=== PATIENT | male | born 1990 | race Caucasian/White ===

== ENCOUNTER 2021-12-02 17:30 | Inpatient (IN) | payer SELFPAY ==
[~2021-12-02] VITALS: Ht 317.5 cm; Wt 67.6 kg
[2021-12-02] MEDS ORDERED: KETOROLAC 30MG/ML VIAL IV STA (19:18)
[2021-12-02] MEDS ORDERED: BACITRACIN ZINC OINT UDPKT TOP ONE (19:30)
[2021-12-02] MEDS ORDERED: SODIUM CHLORIDE 0.9% 1,000 ML IV ONE (19:30)
[2021-12-02] MEDS ORDERED: TETANUS, DIPHTHERIA, PERTUSSIS VAC/PF 0.5ML (>10YR OLD) IM ONE ×2 (19:30→23:45)
[2021-12-02] MEDS ORDERED: LIDOCAINE HCL/EPINEPHRINE 1%-EPI 1:100,000 20 ML VIAL INFIL ONE (19:30)
[2021-12-02 19:43] LABS: BASOPHILS % 0.2 % (0.0-2.0); EOSINOPHILS % 0.6 % (0.0-5.0); HEMATOCRIT. 42.2 % (42.0-52.0); HEMOGLOBIN. 14.2 g/dL (14.0-18.0); LYMPHOCYTES % 10.5 % (20.0-50.0); MEAN CORPUSCULAR HEMOGLOBIN 30.1 pg (28.0-32.0); MEAN CORPUSCULAR VOLUME 89.8 fL (80.0-94.0); MEAN PLATELET VOLUME 6.6 fl (7.4-10.4); MONOCYTES % 4.3 % (2.0-8.0); NEUTROPHILS % 84.4 % (40.0-76.0); PLATELET 437 x1000/uL (130-400); RED CELL DISTRIBUTION WIDTH 13.5 % (11.6-14.6)
[2021-12-02 19:46] LABS: CHLORIDE 104 mEq/L (98-107)
[2021-12-02 20:00] LABS: INR 0.9; PARTIAL THROMBOPLASTIN TIME 25.5 sec (23.4-31.0)
[2021-12-02] MEDS ORDERED: IOHEXOL-350 100 ML BOTTLE ONE (20:34)
[2021-12-02] MEDS ORDERED: MORPHINE SULFATE 4 MG/ML CPJ (NOT FOR IM USE) IV ONE (21:00)
[2021-12-03] MEDS: HYDROCODONE/ACETAMINOPHEN 5/325MG TABLET PO PRN (06:41)
[2021-12-03 09:35] VITALS: BP 137/91
[2021-12-03] MEDS ORDERED: MIDAZOLAM HCL 2 MG/2 ML VIAL ONE (10:12)
[2021-12-03] MEDS ORDERED: FENTANYL CITRATE/PF 50MCG/ML 2ML VIAL ONE (10:12)
[2021-12-03] MEDS ORDERED: PROPOFOL 200MG/20ML VIAL IV ONE ×2 (10:12→11:02)
[2021-12-03] MEDS ORDERED: ONDANSETRON HCL 4MG/2ML INJ ONE (10:12)
[2021-12-03] MEDS ORDERED: DEXAMETHASONE 4MG/ML 1ML VIAL ONE (10:12)
[2021-12-03] MEDS ORDERED: POLYMYXIN B SULFATE 500000 UNITS/VIAL ONE (10:36)
[2021-12-03] MEDS ORDERED: VANCOMYCIN HCL 1 GM/VIAL ONE ×2 (10:37→10:52)
[2021-12-03] MEDS ORDERED: LIDOCAINE HCL 1% 50ML VIAL (10MG/ML) ONE (10:37)
[2021-12-03] MEDS ORDERED: BUPIVACAINE HCL/PF 0.5% (5MG/ML) 10ML ONE (10:53)
[2021-12-03] MEDS ORDERED: HYDROMORPHONE HCL/PF 2MG/ML CPJ ONE (10:58)
[2021-12-03] MEDS ORDERED: CEFAZOLIN SODIUM 1000MG/VIAL ONE (11:00)
[2021-12-03] MEDS ORDERED: MEPERIDINE HCL/PF 25MG/ML CPJ IV PRN (11:15)
[2021-12-03] MEDS ORDERED: HYDROMORPHONE HCL/PF 2MG/ML CPJ IV PRN (11:15)
[2021-12-03] MEDS ORDERED: LABETALOL 5MG/ML SYR 20 MG/4 ML SYRINGE IV PRN (11:15)
[2021-12-03] MEDS ORDERED: ONDANSETRON HCL 4MG/2ML INJ IV PRN ×2 (11:15→11:30)
[2021-12-03] MEDS ORDERED: ACETAMINOPHEN 325MG TABLET PO PRN (11:30)
[2021-12-03] MEDS ORDERED: NALOXONE HCL 0.4MG/ML VIAL IV PRN (12:00)
[2021-12-03] MEDS ORDERED: LORAZEPAM 1MG TABLET PO PRN (12:45)
[2021-12-03] MEDS ORDERED: HYDROCODONE/ACETAMINOPHEN 5/325MG TABLET PO PRN (12:45)
[2021-12-03] MEDS: CEFAZOLIN 2,000 MG in DEXT 5% WATER 100 ML IV SCH ×2 (17:05→22:00)
[2021-12-03 20:00] VITALS: BP 122/87
[2021-12-04] VITALS: BP 118/73
[2021-12-04 04:00] VITALS: BP 126/90
[2021-12-04] MEDS: CEFAZOLIN 2,000 MG in DEXT 5% WATER 100 ML IV SCH ×3 (05:02→20:40)
[2021-12-04] MEDS: HYDROCODONE/ACETAMINOPHEN 5/325MG TABLET PO PRN (07:47)
[2021-12-04 08:00] VITALS: BP 111/81
[2021-12-04 12:00] VITALS: BP 148/80
[2021-12-04] MEDS: HYDROCODONE/ACETAMINOPHEN 10/325MG TABLET PO PRN ×2 (13:33→20:28)
[2021-12-04 16:00] VITALS: BP 106/72
[2021-12-04 20:00] VITALS: BP 129/82
[2021-12-04 21:17] LABS: BASOPHILS % 0.5 % (0.0-2.0); EOSINOPHILS % 1.2 % (0.0-5.0); HEMATOCRIT. 34.6 % (42.0-52.0); HEMOGLOBIN. 11.7 g/dL (14.0-18.0); LYMPHOCYTES % 23.8 % (20.0-50.0); MEAN CORPUSCULAR HEMOGLOBIN 30.6 pg (28.0-32.0); MEAN CORPUSCULAR VOLUME 90.5 fL (80.0-94.0); MEAN PLATELET VOLUME 6.7 fl (7.4-10.4); MONOCYTES % 9.7 % (2.0-8.0); NEUTROPHILS % 64.8 % (40.0-76.0); PLATELET 391 x1000/uL (130-400); RED BLOOD CELL COUNT 3.82 mill/uL (4.7-6.1); RED CELL DISTRIBUTION WIDTH 13.7 % (11.6-14.6)
[2021-12-04 21:20] LABS: CHLORIDE 101 mEq/L (98-107)
[2021-12-05] VITALS: BP 113/78
[2021-12-05 04:00] VITALS: BP 124/89
[2021-12-05] MEDS: CEFAZOLIN 2,000 MG in DEXT 5% WATER 100 ML IV SCH ×2 (05:16→18:16)
[2021-12-05] MEDS: HYDROCODONE/ACETAMINOPHEN 10/325MG TABLET PO PRN ×3 (05:37→16:14)
[2021-12-05 08:00] VITALS: BP 111/75
[2021-12-05 12:00] VITALS: BP 118/77
[2021-12-05 16:00] VITALS: BP 109/72
[2021-12-05 20:00] VITALS: BP 120/69
[2021-12-06] VITALS: BP 126/84
[2021-12-06] MEDS: CEFAZOLIN 2,000 MG in DEXT 5% WATER 100 ML IV SCH ×2 (02:00→09:22)
[2021-12-06 04:00] VITALS: BP 126/84
[2021-12-06] MEDS ORDERED: MORPHINE SULFATE 2 MG/ML CPJ (NOT FOR IM USE) IV PRN (07:45)
[2021-12-06 08:00] VITALS: BP 128/88
[2021-12-06 12:00] VITALS: BP 125/87
[2021-12-06] MEDS ORDERED: BUPIVACAINE HCL 0.5% (5MG/ML) 50ML ONE (13:35)
[2021-12-06] MEDS ORDERED: FENTANYL CITRATE/PF 50MCG/ML 2ML VIAL ONE ×2 (13:40→13:57)
[2021-12-06] MEDS ORDERED: PROPOFOL 200MG/20ML VIAL IV ONE (13:40)
[2021-12-06] MEDS ORDERED: MIDAZOLAM HCL 2 MG/2 ML VIAL ONE (13:41)
[2021-12-06] MEDS ORDERED: ESMOLOL HCL 10MG/ML 10ML VIAL IV ONE (14:05)
[2021-12-06] MEDS ORDERED: PHENYLEPHRINE HCL 10 MG/ML 1ML (IV VIAL) IV ONE (14:19)
[2021-12-06] MEDS ORDERED: BACITRACIN 15GM TUBE TOP ONE (14:26)
[2021-12-06] MEDS ORDERED: ONDANSETRON HCL 4MG/2ML INJ ONE (14:36)
[2021-12-06 16:15] VITALS: BP 137/86
[2021-12-07] MEDS ORDERED: CEFAZOLIN 2,000 MG in DEXT 5% WATER 100 ML IV SCH (02:00)
[2021-12-16 07:08] LABS: BARBITURATE SCREEN Negative ug/mL (Cutoff:0.1); BENZODIAZEPINE SCREEN Negative ng/mL (Cutoff:20); OPIATES SCREEN Negative ng/mL (Cutoff:5); PHENCYCLIDINE SCREEN Negative ng/mL (Cutoff:8)
== END 2021-12-06 16:47 | disposition left against medical advice (07) | DRG 317 ==
LOC: ER 17:30 → 6EST 12-03 01:39 → ENRESERV 12-03 07:57
PROVIDERS: ADMIT Internal Medicine; ATTEND Internal Medicine
PROC: 0KN80ZZ Release Left Upper Arm Muscle, Open Approach (ICD-10-PCS; principal; 2021-12-03)
PROC: 0KN80ZZ Release Left Upper Arm Muscle, Open Approach (ICD-10-PCS; 2021-12-03)
PROC: 0KN80ZZ Release Left Upper Arm Muscle, Open Approach (ICD-10-PCS; 2021-12-03)
PROC: 0XQ7XZZ Repair Left Upper Extremity, External Approach (ICD-10-PCS; 2021-12-03)
DX: T79.A12A Traumatic compartment syndrome of left upper extremity, initial encounter (principal); R71.0 Precipitous drop in hematocrit; F10.129 Alcohol abuse with intoxication, unspecified; S51.812A Laceration without foreign body of left forearm, initial encounter; Z20.822 Contact with and (suspected) exposure to COVID-19; X99.8XXA Assault by other sharp object, initial encounter; Y93.84 Activity, sleeping; Y92.480 Sidewalk as the place of occurrence of the external cause; Y99.8 Other external cause status; Y90.6 Blood alcohol level of 120-199 mg/100 ml
CPT/HCPCS: 36415; 73090; 73206; 80048; 80053; 80307; 80320; 85025; 86850; 86900; 87426; 90715; 93922; 99291; A4565; J0690; J1100; J1170; J1885; J2250; J2270; J2370; J2405; J2704; J3010; J3370; J3490; J7030; J7060; Q9967; G0480